=== PATIENT | female | born 1995 | race Caucasian/White ===

== ENCOUNTER → 2025-03-31 | Outpatient (CLI) | payer BC, MEDICAID, SELFPAY ==
--- NOTE | 2025-03-31 10:48 | XR_ITS ---
Examination: Bilateral hands, 4 views. Technique: AP, lateral each hand total 4 views Date and time of exam: March 31, 2025 1042 hours INDICATIONS: Bilateral hand pain beginning 2 weeks ago Findings: Mild juxta-articular bone demineralization No fracture or dislocation involving either hand No erosive or other arthritic change involving either hand No opaque foreign bodies No avascular necrosis IMPRESSION: No erosive or other arthritic change involving either hand
[2025-03-31 12:01] LABS: Basophils # (Auto) 0.0 Thou/mm3 (0.0-0.2); Basophils % (Auto) 1 % (0-2.5); Eosinophils # (Auto) 0.5 Thou/mm3 (0.0-0.5); Eosinophils % (Auto) 5 % (0-10); Hematocrit 37.8 % (36.0-46.0); Hemoglobin 13.3 g/dL (12.0-16.0); Immature Granulocytes Auto 0.02 Thou/mm3 (0.00-0.00); Lymphocytes # (Auto) 2.8 Thou/mm3 (1.0-4.8); Lymphocytes % (Auto) 33 % (10-50); Mean Corpuscular HGB Conc 35.2 g/dl (31.0-37.0); Mean Corpuscular Hemoglobin 29.8 pg (25.0-35.0); Mean Corpuscular Volume 85 fL (80-100); Monocytes # (Auto) 0.6 Thou/mm3 (0.0-0.8); Monocytes % (Auto) 7 % (0-12); Neutrophils # (Auto) 4.5 Thou/mm3 (1.8-7.7); Neutrophils % (Auto) 54 % (37-80); Nucleated Red Blood Cell # 0.00 Thou/mm3 (0.00-0.00); Nucleated Red Blood Cell % 0 /100 WBC (0); Platelet Count 244 Thou/mm3 (140-440); RDW Standard Deviation 40.9 fL (36.4-46.3); Red Blood Count 4.47 Miln/mm3 (4.00-5.20); White Blood Count 8.3 Thou/mm3 (3.6-11.0)
[2025-03-31 12:28] LABS: Folate 18.30 ng/mL (>5.38); Vitamin B12 438 pg/mL (211-911)
[2025-03-31 12:33] LABS: Alanine Aminotransferase 40 U/L (10-49); Albumin, Serum 4.6 gm/dL (3.5-5.0); Albumin/Globulin Ratio 1.4 (1.2-2.2); Alkaline Phosphatase 69 U/L (46-116); Anion Gap 9 (7-16); Aspartate Amino Transferase 23 U/L (0-34); BUN/Creatinine Ratio 13 Ratio (12-20); Bilirubin,Total 0.6 mg/dL (0.3-1.2); Blood Urea Nitrogen 9 mg/dL (9-23); C-Reactive Protein 0.8 mg/dL (0.0-0.9); Calcium 9.3 mg/dL (8.3-10.6); Calcium (Corrected) 9.3 mg/dL (8.5-10.1); Carbon Dioxide 25.0 mMol/L (20.0-31.0); Chloride 106 mMol/L (98-107); Creatinine (Component) 0.7 mg/dL (0.6-1.3); Free T3 3.2 pg/mL (2.3-4.2); Free T4 (Free Thyroxine) 1.18 ng/dL (0.89-1.76); Globulin 3.2 gm/dL (2.3-3.5); Glucose 107 mg/dL (74-106); Osmolality,Calculated 278 (275-295); Potassium 3.8 mMol/L (3.4-5.1); Sodium 140 mMol/L (136-145); Thyroid Stimulating Hormone 2.50 uIU/mL (0.55-4.78); Total Protein 7.8 gm/dL (5.7-8.2); Uric Acid 6.5 mg/dL (3.1-7.8); eGFR > 60 See Note
[2025-03-31 12:37] LABS: Sed Rate (ESR) 37 mm/hr (0-20)
[2025-03-31 15:10] LABS: RA Screen Negative (Negative)
[2025-04-05 06:36] LABS: ANA Pattern NUCLEAR, SPECKLED; ANA Screen, IFA POSITIVE (NEGATIVE); ANA Titer 1:320 titer; T3,Total* 103 ng/dL (76-181)
[2025-04-05 06:37] LABS: CCP Antibody (IgG)* <16 Units; Thyroid Peroxidase Antibodies* >900 IU/mL (<9)
== END | disposition home or self-care (01) ==
LOC: CDIM 10:34 → COPL 11:06
PROVIDERS: PCP Nurse Practitioner; Referring Provider Nurse Practitioner; Visit Provider Radiology Diagnostic Radiology
DX: M79.642 Pain in left hand (principal); M79.641 Pain in right hand; E03.9 Hypothyroidism, unspecified; R53.83 Other fatigue
CPT/HCPCS: 36415; 73120; 80053; 82607; 82746; 84439; 84443; 84480; 84481; 84550; 85025; 85652; 86038; 86140; 86200; 86376; 86430